=== PATIENT | female | born 1965 | race Caucasian/White ===

== ENCOUNTER 2016-09-26 23:28 | Inpatient (IN) | payer BC ==
--- NOTE | 2016-09-27 00:14 | ED ---
Psych HPI - General Chief Complaint: Psychiatric Symptoms Stated Complaint: Mental Health Time Seen by Provider: 09/26/16 23:45 Source: patient, RN notes reviewed Mode of arrival: ambulatory - History of Present Illness Initial Comments: Patient is a 51-year-old female since emergency room for psych evaluation. Patient states she has a history of anxiety, depression and bipolar disorder. Patient states she's originally from [place]. Patient states she is here visiting to help her mother through her health issues. Patient states over the past few months she has been binge drinking alcohol. Patient states she has about 4-5 glasses per day of either vodka, whiskey or beer. Patient states she has been increasingly depressed over the past few months. Patient states that her partner is going through treatment for breast cancer and she also recently lost her job. Patient states she hasn't followed up with her psychiatrist in about 3 months. Patient states she is on a handful of psych medications that are not helping her. Patient states she is here because she feels like she needs help with readjustment of her medications and needs help for rehab for alcoholism. Patient states that her family today had intervention with her that she needs to get help. Patient states over the past few months she has been having on-and-off suicidal thoughts. Patient states since being here in the state with her family the suicidal thoughts have disappeared. Patient denies any current suicidal thoughts. Patient denies homicidal ideations. Patient denies visual or auditory hallucinations. Patient denies chest pain, shortness of breath, headache, dizziness, abdominal pain, nausea, vomiting. Patient denies illicit drug use. - Related Data Home Medications Medication Instructions Recorded Confirmed Acetaminophen Tab [Tylenol Tab] 500 mg PO Q6H PRN 09/27/16 09/27/16 Fexofenadine HCl [Jo Ann Allergy] 180 mg PO DAILY 09/27/16 09/27/16 Hydrocortisone Valerate 15 gm TP DAILY 09/27/16 09/27/16 Levothyroxine Sodium [Synthroid] 125 mcg PO DAILY 09/27/16 09/27/16 Liothyronine Sodium [Cytomel] 5 mcg PO DAILY 09/27/16 09/27/16 Loperamide HCl [Loperamide] 2 mg PO DAILY 09/27/16 09/27/16 Melatonin 10 mg PO HS 09/27/16 09/27/16 Phenazopyridine HCl 95 mg PO TID 09/27/16 09/27/16 Pregabalin [Lyrica] 75 mg PO BID 09/27/16 09/27/16 Ziprasidone HCl [Geodon] 20 mg PO DAILY 09/27/16 09/27/16 clonazePAM [KlonoPIN] 0.5 mg PO BID 09/27/16 09/27/16 diphenhydrAMINE HCL 25 mg PO DAILY 09/27/16 09/27/16 [Diphenhydramine HCl] traZODone HCL 150 mg PO DAILY 09/27/16 09/27/16 Allergies Allergy/AdvReac Type Severity Reaction Status Date / Time iodine AdvReac Unknown Verified 09/26/16 23:32 Penicillins AdvReac Unknown Verified 09/26/16 23:32 Review of Systems ROS Statement: Those systems with pertinent positive or pertinent negative responses have been documented in the HPI. ROS Other: All systems not noted in ROS Statement are negative. Past Medical History Past Medical History: Thyroid Disorder Additional Past Medical History / Comment(s): interstitial cystitis History of Any Multi-Drug Resistant Organisms: None Reported Past Surgical History: Tonsillectomy Past Psychological History: Anxiety, Bipolar, Depression Smoking Status: Never smoker Past Alcohol Use History: Daily Past Drug Use History: None Reported General Exam - General Exam Comments Initial Comments: Sitting in exam room, no acute distress. Limitations: no limitations General appearance: alert, in no apparent distress Head exam: Present: atraumatic, normocephalic, normal inspection Eye exam: Present: normal appearance ENT exam: Present: normal exam Neck exam: Present: normal inspection Respiratory exam: Present: normal lung sounds bilaterally. Absent: respiratory distress Cardiovascular Exam: Present: regular rate, normal rhythm, normal heart sounds Extremities exam: Present: normal inspection Back exam: Present: normal inspection Neurological exam: Present: alert, oriented X3, CN II-XII intact, normal gait Psychiatric exam: Present: normal affect, normal mood Skin exam: Present: warm, dry, intact, normal color. Absent: rash Course Vital Signs 09/26/16 09/27/16 09/27/16 23:32 00:33 02:53 Temperature 98.7 F 97.4 F L Pulse Rate 132 H 102 H Respiratory 18 16 14 Rate Blood Pressure 158/73 142/78 O2 Sat by Pulse 94 L 97 Oximetry Medical Decision Making - Medical Decision Making Patient is a 51-year-old female presents emergency room for psych evaluation. Patient medically cleared at this time to be evaluated by psych. Patient evaluated by psych and does meet admission criteria. - Lab Data Lab Results 09/27/16 Range/Units 01:18 Urine Opiates Screen Not Detected (NotDetected) Ur Oxycodone Screen Not Detected (NotDetected) Urine Methadone Screen Not Detected (NotDetected) Ur Propoxyphene Screen Not Detected (NotDetected) Ur Barbiturates Screen Not Detected (NotDetected) U Tricyclic Antidepress Not Detected (NotDetected) Ur Phencyclidine Scrn Not Detected (NotDetected) Ur Amphetamines Screen Not Detected (NotDetected) U Methamphetamines Scrn Not Detected (NotDetected) U Benzodiazepines Scrn Not Detected (NotDetected) Urine Cocaine Screen Not Detected (NotDetected) U Marijuana (THC) Screen Not Detected (NotDetected) Disposition Clinical Impression: Bipolar disorder Disposition: TRANSFER TO PSYCH HOSP/UNIT Condition: Stable Decision Date: 09/27/16
[2016-09-27 04:30] VITALS: BMI 38.7
[2016-09-27] MEDS ORDERED: MAGNESIUM HYDROXIDE 2,400 MG/10 ML CUP PO PRN (05:42)
[2016-09-27] MEDS ORDERED: MAG HYDROX/AL HYDROX/SIMETH 30 ML CUP PO PRN (05:42)
[2016-09-27] MEDS ORDERED: ZIPRASIDONE 20 MG VIAL IM PRN (05:42)
[2016-09-27] MEDS ORDERED: LORazepam 1 MG TAB PO PRN (06:01)
[2016-09-27] MEDS ORDERED: LEVOTHYROXINE 125 MCG TAB PO SCH (06:30)
[2016-09-27 08:58] LABS: Basophils # (A) 0.1 k/uL (0-0.2); Basophils % (A) 1 %; CH 33.6; CHCM 34.3; Eosinophils # (A) 0.2 k/uL (0-0.7); Eosinophils % (A) 3 %; HCT 48.4 % (34.0-46.0); HDW 2.41; HGB 16.8 gm/dL (11.4-16.0); Luc # (Auto) 0.28; Luc % (Auto) 4; Lymphocytes # (A) 2.4 k/uL (1.0-4.8); Lymphocytes % (A) 37 %; MCH 34.2 pg (25.0-35.0); MCHC 34.7 g/dL (31.0-37.0); MCV 98.4 fL (80.0-100.0); Mean Platelet Volume 6.8; Monocytes # (A) 0.4 k/uL (0-1.0); Monocytes % (A) 7 %; Neutrophils # (A) 3.2 k/uL (1.3-7.7); Neutrophils % (A) 48 %; RBC 4.92 m/uL (3.80-5.40); WBC 6.6 k/uL (3.8-10.6); WBC (Perox) 6.36
[2016-09-27] MEDS ORDERED: clonazePAM 0.5 MG TAB PO SCH (09:00)
[2016-09-27] MEDS ORDERED: ZIPRASIDONE 20 MG CAP PO SCH (09:00)
[2016-09-27 09:01] LABS: ALT 169 U/L (9-52); AST 94 U/L (14-36); Alkaline Phosphatase 145 U/L (38-126); Anion Gap 12 mmol/L; Blood Urea Nitrogen 16 mg/dL (7-17); Calcium 9.5 mg/dL (8.4-10.2); Carbon Dioxide 25 mmol/L (22-30); Chloride 105 mmol/L (98-107); Glucose 143 mg/dL (74-99); Non-African American GFR(MDRD) >60 (>60 ml/min/1.73 sqM); Potassium 4.3 mmol/L (3.5-5.1); Sodium 142 mmol/L (137-145); Total Bilirubin 0.6 mg/dL (0.2-1.3); Total Protein 7.4 g/dL (6.3-8.2)
[2016-09-27] MEDS: PREGABALIN 75 MG CAP PO SCH ×3 (09:04→20:06)
[2016-09-27] MEDS: LIOTHYRONINE SODIUM 5 MCG TAB PO SCH (09:04)
[2016-09-27] MEDS: LORATADINE 10 MG TAB PO SCH (09:05)
[2016-09-27] MEDS: LOPERAMIDE 2 MG CAP PO SCH (09:05)
[2016-09-27] MEDS ORDERED: PREGABALIN 75 MG CAP PO ONE (09:15)
[2016-09-27] MEDS: ACETAMINOPHEN TAB 500 MG TAB PO PRN ×2 (13:00→19:28)
[2016-09-27] MEDS: OLANZapine 5 MG TAB PO SCH ×2 (15:49→20:06)
[2016-09-27 16:23] LABS: Magnesium 2.3 mg/dL (1.6-2.3)
--- NOTE | 2016-09-27 16:23 | P.MDCNMH ---
History of Present Illness H&P Date: 09/27/16 Chief Complaint: Depression, medical management This is a 51-year-old female patient of Dr. John in [place]. She has past medical history of hypothyroidism, interstitial cystitis, anxiety , depression, bipolar disorder, alcohol abuse. Patient has been visiting the area to help her mother through some health issues and over the past few months she has been binge drinking alcohol of 4-5 glasses of either vodka, whiskey or beer per day. She had increasing depression over the past few months. Her partner is going through treatment for breast cancer and also recently lost her job. Patient states that her family did an intervention for alcohol abuse and that's how she ended up here. Her last alcohol intake was 7 PM yesterday. She denies having DTs or seizures in the past. She does complain of bright red blood in her stools for 1 week with hemorrhoids and hemoglobin is stable at 16.8. Random blood sugar 143, AST 94, ALT 169, alkaline phosphatase 145. Patient denies any history of hepatitis. TSH is 5.140 and she does state that she has been taking her Synthroid as prescribed. She does state that she has been feeling tired, her hair is falling out and she's had more lower extremity edema. Review of Systems All systems: negative Constitutional: Reports fatigue, Denies chills, Denies fever Eyes: denies blurred vision, denies pain Ears, nose, mouth and throat: Denies headache, Denies sore throat Cardiovascular: Reports leg edema, Denies chest pain, Denies shortness of breath Respiratory: Denies cough Gastrointestinal: Denies abdominal pain, Denies diarrhea, Denies nausea, Denies vomiting Genitourinary: Denies dysuria, Denies hematuria Musculoskeletal: Denies myalgias Integumentary: Denies pruritus, Denies rash Neurological: Denies numbness, Denies weakness Psychiatric: Reports depression, Denies anxiety Endocrine: Reports fatigue, Denies weight change Past Medical History Past Medical History: Thyroid Disorder Additional Past Medical History / Comment(s): interstitial cystitis History of Any Multi-Drug Resistant Organisms: None Reported Past Surgical History: Tonsillectomy Past Psychological History: Anxiety, Bipolar, Depression Smoking Status: Never smoker Past Alcohol Use History: Abuse, Daily Additional Past Alcohol Use History / Comment(s): Patient is a lifelong nonsmoker. She denies any medical marijuana, marijuana or street drug use. She does have history of alcohol abuse with use of 4-6 drinks per day usually vodka or whiskey or beer. - Past Family History Father Additional Family Medical History / Comment(s): Father at age 64 with cirrhosis of the liver and COPD. Patient abused alcohol. Mother Additional Family Medical History / Comment(s): Mother is alive at age 76 with history of hypothyroidism and diabetes mellitus type 2. Sister(s) Additional Family Medical History / Comment(s): Patient has 2 sisters with no major medical problems. Patient does not have any brothers. Patient does not have any children. Medications and Allergies Home Medications Medication Instructions Recorded Confirmed Type Acetaminophen Tab [Tylenol Tab] 500 mg PO Q6H PRN 09/27/16 09/27/16 History Fexofenadine HCl [Jo Ann Allergy] 180 mg PO DAILY 09/27/16 09/27/16 History Hydrocortisone Valerate 15 gm TP DAILY 09/27/16 09/27/16 History Levothyroxine Sodium [Synthroid] 125 mcg PO DAILY 09/27/16 09/27/16 History Liothyronine Sodium [Cytomel] 5 mcg PO DAILY 09/27/16 09/27/16 History Loperamide HCl [Loperamide] 2 mg PO DAILY 09/27/16 09/27/16 History Melatonin 10 mg PO HS 09/27/16 09/27/16 History Phenazopyridine HCl 95 mg PO TID 09/27/16 09/27/16 History Pregabalin [Lyrica] 150 mg PO BID 09/27/16 09/27/16 History Ziprasidone HCl [Geodon] 20 mg PO DAILY 09/27/16 09/27/16 History clonazePAM [KlonoPIN] 0.5 mg PO BID 09/27/16 09/27/16 History diphenhydrAMINE HCL 25 mg PO DAILY 09/27/16 09/27/16 History [Diphenhydramine HCl] traZODone HCL 150 mg PO DAILY 09/27/16 09/27/16 History Allergies Allergy/AdvReac Type Severity Reaction Status Date / Time iodine AdvReac Unknown Verified 09/26/16 23:32 Penicillins AdvReac Unknown Verified 09/26/16 23:32 Physical Exam Vitals: Vital Signs Temp Pulse Pulse Resp BP BP Pulse Ox 09/27/16 04:15 97.0 F L 111 H 16 123/74 95 09/27/16 04:00 97.0 F L 111 H 16 123/74 95 09/27/16 02:53 97.4 F L 102 H 14 142/78 97 09/27/16 00:33 16 09/26/16 23:32 98.7 F 132 H 18 158/73 94 L Intake and Output 09/27/16 09/27/16 09/27/16 06:59 14:59 22:59 Other: Weight 119 kg Gen: This is a 51-year-old female. She is cooperative and appears to be in no acute distress. HEENT: Head is atraumatic, normocephalic. Pupils equal, round. Sclerae is anicteric. NECK: Supple. No JVD. No lymphadenopathy. No thyromegaly. LUNGS: Clear to auscultation. No wheezes or rhonchi. No intercostal retractions. HEART: Regular rate and rhythm. No murmur. ABDOMEN: Soft. Bowel sounds are present. No masses. No tenderness. EXTREMITIES: No pedal edema. No calf tenderness. NEUROLOGICAL: Patient is awake, alert and oriented x3. Cranial nerves 2 through 12 are grossly intact. - Neurologic Neurologic: CNII-XII intact Cranial Nerve Examination - Cranial Nerves Cranial Nerve I- Olfactory: Intact Cranial Nerve II- Optic: Intact Cranial Nerve III- Oculomotor: Intact Cranial Nerve IV- Trochlear: Intact Cranial Nerve V- Trigeminal: Intact Cranial Nerve - Abducens: Intact Cranial Nerve VII- Facial: Intact Cranial Nerve VIII- Auditory: Intact Cranial Nerve IX- Glossopharyngeal: Intact Cranial Nerve X- Vagus: Intact Cranial Nerve XI- Accessory: Intact Cranial Nerve XII- Hypoglossal: Intact Results CBC & Chem 7: 09/27/16 08:29 09/27/16 08:29 Labs: Abnormal Lab Results - Last 24 Hours (Table) 09/27/16 09/27/16 Range/Units 08:29 08:29 Hgb 16.8 H (11.4-16.0) gm/dL Hct 48.4 H (34.0-46.0) % Glucose 143 H (74-99) mg/dL AST 94 H (14-36) U/L ALT 169 H (9-52) U/L Alkaline Phosphatase 145 H (38-126) U/L TSH 5.140 H (0.465-4.680) mIU/L Assessment and Plan Plan: 1. Depression, anxiety and bipolar disorder. Patient admitted to the mental health unit. Continue current plan of care. 2. Alcohol abuse with requested need for rehab. Continue as in #1. 3. Hypothyroidism. Continue Synthroid but dose will be increased. Patient will take 125 g Saturday through Saturday and 250 g on Saturday. Patient will need recheck of her TSH in 6-8 weeks. 4. No tobacco use. No need for nicotine patch. 5. Elevated liver function tests. Acute hepatitis panel ordered. Ultrasound of the abdomen ordered. Impression and plan of care have been directed as dictated by the signing physician. Julieta Miranda nurse practitioner acting as scribe for signing physician.
[2016-09-27 17:30] LABS: Vitamin B12 344 pg/mL (239-931)
[2016-09-27 17:42] LABS: Hepatitis B Surface Ag Index 0.05
[2016-09-27 17:48] LABS: Hepatitis B Core IgM Index 0.02
[2016-09-27 18:00] LABS: Hepatitis C Virus IgG Ab Negative (Negative); Hepatitis C Virus IgG Index 0.02
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
[2016-09-27] MEDS: clonazePAM 0.5 MG TAB PO SCH (20:06)
[2016-09-27] MEDS: diphenhydrAMINE 25 MG CAP PO SCH (20:06)
[2016-09-27] MEDS: traZODone HCL 50 MG TAB PO SCH (20:06)
[2016-09-27] MEDS ORDERED: MELATONIN 5 MG TABLET PO SCH (21:00)
[2016-09-28] MEDS: LEVOTHYROXINE 125 MCG TAB PO SCH (05:38)
[2016-09-28] MEDS: ACETAMINOPHEN TAB 500 MG TAB PO PRN ×2 (06:34→22:06)
[2016-09-28] MEDS: clonazePAM 0.5 MG TAB PO SCH ×2 (08:29→21:05)
[2016-09-28] MEDS: LOPERAMIDE 2 MG CAP PO SCH ×2 (08:29→08:38)
[2016-09-28] MEDS: LORATADINE 10 MG TAB PO SCH (08:30)
[2016-09-28] MEDS: PREGABALIN 75 MG CAP PO SCH ×2 (08:30→21:04)
[2016-09-28] MEDS: LIOTHYRONINE SODIUM 5 MCG TAB PO SCH (08:30)
[2016-09-28] MEDS: OLANZapine 5 MG TAB PO SCH ×3 (08:31→21:05)
[2016-09-28] MEDS ORDERED: LOPERAMIDE 2 MG CAP PO PRN (11:19)
--- NOTE | 2016-09-28 11:51 | US ---
EXAMINATION TYPE: US abdomen limited DATE OF EXAM: 09/28/2016 COMPARISON: NONE CLINICAL HISTORY: elevated liver enzymes. NPO EXAM MEASUREMENTS: Liver Length: 21.9 cm Gallbladder Wall: 0.2 cm CHD: 0.3 cm Right Kidney: 12.7 x 4.5 x 5.0 cm Pancreas: Obscured by bowel gas Liver: Enlarged. Increased attenuation, decreased visualization of vessels suggestive of fatty infil trate Gallbladder: wnl Evidence for sonographic Encinas's sign: neg CHD: wnl Right Kidney: Echogenic focus seen in mid cortical region = 0.7 x 0.7 cm IMPRESSION: 1. Hepatomegaly with coarse echo appearance likely reflecting hepatic steatosis versus diffuse hepato cellular disease. 2. Nonshadowing echogenic focus right kidney may reflect nonobstructing stone versus angiomyolipoma.
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
[2016-09-28] MEDS: traZODone HCL 50 MG TAB PO SCH (21:05)
[2016-09-28] MEDS: diphenhydrAMINE 25 MG CAP PO SCH (21:05)
[2016-09-29] MEDS: ACETAMINOPHEN TAB 500 MG TAB PO PRN ×3 (05:19→22:51)
[2016-09-29] MEDS: LEVOTHYROXINE 125 MCG TAB PO SCH (05:20)
[2016-09-29] MEDS: LORATADINE 10 MG TAB PO SCH (08:43)
[2016-09-29] MEDS: LIOTHYRONINE SODIUM 5 MCG TAB PO SCH (08:43)
[2016-09-29] MEDS: OLANZapine 5 MG TAB PO SCH ×2 (08:44→16:07)
[2016-09-29] MEDS: clonazePAM 0.5 MG TAB PO SCH ×2 (08:44→21:16)
[2016-09-29] MEDS: PREGABALIN 75 MG CAP PO SCH ×2 (08:44→21:16)
--- NOTE | 2016-09-29 19:45 | P.PN ---
Progress Note - Text Date of service: 09/29/2016 Chief complaint: "I feel tired " Subjective: The patient has been seen today as follow-up, chart reviewed, case discussed with the treatment team. Patient presented today for evaluation reported had heart time to fall asleep last night but she reports minimal interruption of her sleep and she slept well last night. The patient reported her appetite is better. She minimizes depression, and he denies feeling suicidal or homicidal.The patient denies any manic symptoms including sustained period of time with elevated. The patient denies any auditory or visual hallucinations. Also the patient denies any paranoid ideation. Patient requested to change Zyprexa from 3 times daily to twice daily as she reports has poor compliance with frequent dosing medications. Review of other systems: Patient denies any physical symptoms besides what has been mentioned above. No breathing problems, no chest pain reported today. Objective: Vitals has been reviewed. Mental status examination: The patient appears stated age, adequately groomed, was no specific features. She has normal gait with no abnormal movement. The patient was generally cooperative, engaging and has fair eye contact. The patient has normal psychomotor activity. Speech was normal rate dressed and articulated. Mood was anxious with constricted affect. Thought form: goal-directed, linear, coherent. Thought content: Non-delusional, denies suicidal thoughts, denies homicidal thoughts, denies intentions or plans. Perception: Denies any auditory or visual hallucinations Attention: No impairment. Patient was able to repeat serial 7. Orientation: Patient patient was fully oriented to time place person and situation. Insight: Patient has limited insight about his psychiatric disorder. Judgment: Patient has limited judgment about his psychiatric treatment. Assessment: Major depressive disorder recurrent, severe without psychosis. PTSD. Plan: Continue inpatient level of care for further monitoring and stabilization of psychiatric symptoms. Continue current management including psychotropic medications Klonopin 0.5 mg twice daily, Benadryl 25 mg at bedtime, and trazodone 150 mg at bedtime. Changes Zyprexa to 5 mg by mouth a.m. and 10 mg at bedtime.
[2016-09-29] MEDS ORDERED: OLANZapine 10 MG TAB PO SCH (21:00)
[2016-09-29] MEDS ORDERED: OLANZapine 5 MG TAB PO SCH (21:00)
[2016-09-29] MEDS: diphenhydrAMINE 25 MG CAP PO SCH (21:16)
[2016-09-29] MEDS: traZODone HCL 50 MG TAB PO SCH (21:16)
[2016-09-30] MEDS: LEVOTHYROXINE 125 MCG TAB PO SCH ×2 (05:09→20:32)
[2016-09-30] MEDS: LIOTHYRONINE SODIUM 5 MCG TAB PO SCH (09:00)
[2016-09-30] MEDS: LORATADINE 10 MG TAB PO SCH (09:00)
[2016-09-30] MEDS: OLANZapine 5 MG TAB PO SCH (09:02)
[2016-09-30] MEDS: clonazePAM 0.5 MG TAB PO SCH ×2 (09:02→20:37)
[2016-09-30] MEDS: PREGABALIN 75 MG CAP PO SCH ×2 (09:03→20:36)
--- NOTE | 2016-09-30 16:08 | P.PN ---
Progress Note - Text Date of service:09/30/2016 Chief complaint: "I feel anxious but looking forward for discharge" Subjective: The patient has been seen today as follow-up, chart reviewed, case discussed with the treatment team. The patient talked about has discharge meeting with psychosocial rehabilitation counselor and she feels more exited and little anxious about that. Patient denies feeling depressed and denies any suicidal or homicidal thoughts. She reports has better sleep, and stated her appetite is "more stimulated". The patient denies any manic symptoms. The patient denies any auditory or visual hallucinations. Also the patient denies any paranoid ideation. Patient reports better sleep last night with moving Zyprexa to 10mg at bed time. Review of other systems: Patient denies any physical symptoms besides what has been mentioned above. No breathing problems, no chest pain reported today. Objective: Vitals has been reviewed. Mental status examination; The patient appears stated age, adequately groomed, was no specific features. She has normal gait with no abnormal movement. The patient was generally cooperative, engaging and has fair eye contact. The patient has normal psychomotor activity. Speech was normal rate dressed and articulated. Mood was anxious with constricted affect. Thought form: goal-directed, linear, coherent. Thought content: Non-delusional, denies suicidal thoughts, denies homicidal thoughts, denies intentions or plans. Perception: Denies any auditory or visual hallucinations Attention: No impairment. Patient was able to repeat serial 7. Orientation: Patient patient was fully oriented to time place person and situation. Insight: Patient has limited insight about his psychiatric disorder. Judgment: Patient has limited judgment about his psychiatric treatment. Assessment: Major depressive disorder recurrent, severe without psychosis. PTSD. Plan: Continue inpatient level of care for further monitoring and stabilization of psychiatric symptoms. Continue current management including psychotropic medications Klonopin 0.5 mg twice daily, Benadryl 25 mg at bedtime, and trazodone 150 mg at bedtime. Continue Zyprexa to 5 mg by mouth a.m. and 10 mg at bedtime. Patient is requesting discharge. discharge planning is considered.
[2016-09-30] MEDS: OLANZapine 10 MG TAB PO SCH (20:36)
[2016-09-30] MEDS: diphenhydrAMINE 25 MG CAP PO SCH (20:36)
[2016-09-30] MEDS: traZODone HCL 50 MG TAB PO SCH (20:37)
[2016-09-30] MEDS: ACETAMINOPHEN TAB 500 MG TAB PO PRN (21:53)
[2016-10-01] MEDS: LEVOTHYROXINE 125 MCG TAB PO SCH (06:05)
[2016-10-01] MEDS: ACETAMINOPHEN TAB 500 MG TAB PO PRN ×2 (06:06→19:30)
[2016-10-01] MEDS: LIOTHYRONINE SODIUM 5 MCG TAB PO SCH (09:01)
[2016-10-01] MEDS: clonazePAM 0.5 MG TAB PO SCH ×2 (09:01→20:55)
[2016-10-01] MEDS: PREGABALIN 75 MG CAP PO SCH ×2 (09:01→20:47)
[2016-10-01] MEDS: LORATADINE 10 MG TAB PO SCH (09:01)
[2016-10-01] MEDS: OLANZapine 5 MG TAB PO SCH (09:03)
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
[2016-10-01] MEDS: OLANZapine 10 MG TAB PO SCH (20:47)
[2016-10-01] MEDS: traZODone HCL 50 MG TAB PO SCH (20:48)
[2016-10-02] MEDS ORDERED: LORazepam 1 MG TAB PO STA (01:16)
[2016-10-02] MEDS: LEVOTHYROXINE 125 MCG TAB PO SCH (06:25)
[2016-10-02] MEDS: LORATADINE 10 MG TAB PO SCH (08:13)
[2016-10-02] MEDS: clonazePAM 0.5 MG TAB PO SCH ×2 (08:13→20:07)
[2016-10-02] MEDS: LIOTHYRONINE SODIUM 5 MCG TAB PO SCH (08:13)
[2016-10-02] MEDS: OLANZapine 5 MG TAB PO SCH (08:14)
[2016-10-02] MEDS: PREGABALIN 75 MG CAP PO SCH ×2 (08:14→20:07)
[2016-10-02] MEDS: ACETAMINOPHEN TAB 500 MG TAB PO PRN ×2 (08:47→19:22)
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
[2016-10-02] MEDS: traZODone HCL 100 MG TAB PO SCH (20:07)
[2016-10-02] MEDS: OLANZapine 10 MG TAB PO SCH (20:08)
[2016-10-02] MEDS ORDERED: MELATONIN 5 MG TABLET PO STA (21:37)
[2016-10-03] MEDS: LEVOTHYROXINE 125 MCG TAB PO SCH (06:40)
[2016-10-03] MEDS: LORATADINE 10 MG TAB PO SCH (08:30)
[2016-10-03] MEDS: LIOTHYRONINE SODIUM 5 MCG TAB PO SCH (08:30)
[2016-10-03] MEDS: OLANZapine 5 MG TAB PO SCH (08:33)
[2016-10-03] MEDS: PREGABALIN 75 MG CAP PO SCH ×2 (08:33→20:14)
[2016-10-03] MEDS: clonazePAM 0.5 MG TAB PO SCH (08:33)
[2016-10-03] MEDS: ACETAMINOPHEN TAB 500 MG TAB PO PRN ×3 (08:34→22:21)
[2016-10-03] MEDS ORDERED: OLANZapine 10 MG TAB PO SCH ×2 (13:57→14:02)
--- NOTE | 2016-10-03 14:45 | P.PN ---
Progress Note - Text INTERVAL HISTORY: Discussed at treatment team meeting, review of record, met with patient. Now assuming care for the patient from Dr. Moeller Patient reports that she is planning on leaving tomorrow, her sister will pick her up and that her partner from [place] will be flying in either Saturday or Saturday and then they will drive back to [place]. We discussed her alcohol use disorder problem, she is now planning on going to a rehabilitation program when she returns to [place]. That still has to be determined with her insurance company. She is aware that alcohol has been a problem for her, she also is aware that she has anxiety that may be in part due to alcohol withdrawal but also may be an independent disorder she states that depending upon which psychiatrist she talked to she has a bipolar disorder or major depressive disorder. She does not have an episode of ochoa. States if she has bipolar she is always depressed. We talked about alcohol and alcohol rehabs, that she cannot take Klonopin while she is there. She is aware and recalls the discussion she had with Dr. Moeller about this issue but is worried and anxious about stopping. I suggested that she stay a bit longer on the unit and that we stop the clonazepam today and give her 2 days without to see how she does. She declined wants to go home feels she can do better at home with her mother. We discussed other options in terms of helping her get through this, and as Dr. Moeller had said the olanzapine is related to help deal with the stress, as well as the possibility of bipolar disorder/MDD. Patient denies suicidal ideation predominantly is anxious. Slept a little bit better last night. She also has poor insight and is still is apprehensive about the idea of going off benzodiazepines. She tolerates her psychotropic medications. MENTAL STATUS EXAM: Alert and oriented 3 speech normal volume rate production. No auditory or visual hallucinations. Mood dysphoric to neutral, affect full range decreased intensity No suicidal or homicidal ideation. ASSESSMENT: I will continue the current diagnosis and treatment plan that Dr. Edmond the inpatient had planned. PLAN: Continue inpatient psychiatric admission, safety and treatment purposes. Increase Zyprexa to 20 mg at bedtime. Discontinue 5 mg a.m. dose. Continue trazodone 200 mg daily at bedtime. Add melatonin 6 mg daily at bedtime. Discontinue clonazepam. Encourage her to exercise, use breathing exercises, and I version techniques to deal with anxiety. Milieu therapy
[2016-10-03 15:20] LABS: Appearance,Urine Clear (Clear); Bilirubin,Urine Negative (Negative); Glucose,Urine (UA) 4+ (Negative); Ketones,Urine Negative (Negative); Leukocyte Esterase,Urine Negative (Negative); Nitrite,Urine Negative (Negative); PH, Urine 5.5 (5.0-8.0); Protein,Urine Negative (Negative); Specific Gravity,Urine 1.021 (1.001-1.035); UA Billing (MACRO vs. MICRO) CHEM; Urobilinogen,Urine <2.0 mg/dL (<2.0)
[2016-10-03] MEDS: traZODone HCL 100 MG TAB PO SCH (20:15)
[2016-10-03] MEDS ORDERED: lamoTRIgine 25 MG TAB PO SCH (21:00)
[2016-10-03] MEDS ORDERED: MELATONIN 3 MG TABLET PO SCH (21:00)
[2016-10-04 06:36] VITALS: BP 117/67; PULSE 102; RESP 20; TEMP 98
[2016-10-04] MEDS: LEVOTHYROXINE 125 MCG TAB PO SCH (06:57)
[2016-10-04] MEDS: LIOTHYRONINE SODIUM 5 MCG TAB PO SCH (08:00)
[2016-10-04] MEDS: LORATADINE 10 MG TAB PO SCH (08:00)
[2016-10-04] MEDS: PREGABALIN 75 MG CAP PO SCH (08:00)
[2016-10-04] MEDS: ACETAMINOPHEN TAB 500 MG TAB PO PRN (08:01)
[2016-10-04] MEDS ORDERED: BENZTROPINE MESYLATE 1 MG TAB PO SCH ×2 (09:45→21:00)
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
== END 2016-10-04 16:30 | disposition home or self-care (01) | DRG 885 ==
LOC: EC 23:28 → 3MHU 09-27 02:49
PROVIDERS: ADMIT Psychiatry & Neurology Psychiatry; ATTEND Psychiatry & Neurology Psychiatry
DX: F33.2 Major depressive disorder, recurrent severe without psychotic features (principal); N30.10 Interstitial cystitis (chronic) without hematuria; R45.851 Suicidal ideations; F10.239 Alcohol dependence with withdrawal, unspecified; E03.9 Hypothyroidism, unspecified; F41.0 Panic disorder [episodic paroxysmal anxiety]; F43.10 Post-traumatic stress disorder, unspecified; F51.04 Psychophysiologic insomnia; F60.7 Dependent personality disorder; M79.7 Fibromyalgia; Z85.3 Personal history of malignant neoplasm of breast; Z91.410 Personal history of adult physical and sexual abuse; Z91.5 Personal history of self-harm
CPT/HCPCS: 76705; 80053; 80074; 80306; 81003; 82075; 82607; 82746; 82977; 83735; 84439; 84443; 84481; 84630; 85025; 87086